=== PATIENT | female | born 1990 | race Caucasian/White ===

== ENCOUNTER 2017-01-10 14:21 | Emergency (ER) | payer OTHER ==
--- NOTE | ~2017-01-10 | US67 ---
[facility] A Service of [facility] & [facility] RADIOLOGY TEXT RESULTS PATIENT: JUANIS CALLAHAN LOCATION: SED : [birth year] UNIT #: [id number] AGE: [address]: Milind Morel MD SEX: F ORDER DR: [id number] [address] [id number] E MR#: [id number] Acc #: [id number] NAME: JUANIS CALLAHAN : 1990 SEX: F STUDY DATE/TIME: 01/10/2017 15:13 UNIT: SED ROOM: STUDY DESCRIPTION: US Gallbladder Attending Physician: Milind Morel M.D. Ordering Physician: Milind Morel M.D. Primary Care Physician: No Primary Care Physician MEDICAL IMAGING REPORT This report is preliminary unless electronic signature is present. EXAM Gallbladder ultrasound. CLINICAL HISTORY Abdomen pain, off-on one year, vomiting started day. Denies any abdominal surgery. TECHNIQUE Real-time ultrasonography of right upper quadrant performed. Cho-scale, color Doppler, Doppler pulse-wave interrogation utilized. FINDINGS Visualized portions of pancreas unremarkable. Much of the pancreas obscured by bowel gas artifact. Portal vein patent with normal direction of flow. Inferior vena cava patent. Liver appears normal in contour and echotexture. Some portions obscured by bowel gas artifact and rib artifact. Liver measures 15.03 cm in greatest length. The gallbladder contains a 14.7 mm gallstone. This is within the gallbladder neck. There is no pericholecystic fluid or gallbladder wall thickening. Gallbladder wall measures 2.3 mm in thickness. No intrahepatic biliary ductal dilatation. The extrahepatic duct is prominent at 5.7 mm, but no obstructing process is seen. Correlate with clinical presentation and laboratory data. The distal common bile duct is not visualized due to obscuration by bowel gas artifact. The right kidney measures 9.81 cm in greatest length. No hydronephrosis or nephrolithiasis. No cystic or solid mass lesion. No perinephric fluid collection. IMPRESSION 1. There is an approximately 14 mm calculus in the gallbladder neck. There is no sonographic indication of acute cholecystitis. 2. There is no intrahepatic biliary ductal dilatation but the extrahepatic common bile duct is mildly prominent at 5.7 mm in diameter. Correlate with patient's clinical presentation and STS. [facility] A Service of [facility] RADIOLOGY TEXT RESULTS PATIENT: JUANIS CALLAHAN LOCATION: SED : 90 UNIT #: [id number] AGE: [address]: Milind Morel MD SEX: F ORDER DR: laboratory data. No obstructing process is seen but the full course of the common bile duct is not visualized. If further assessment of biliary tree is clinically warranted, consider CT or MRCP. 3. Pancreas largely obscured by bowel gas artifact. If pancreas is of acute clinical concern it could be further assessed with CT. 4. Right kidney normal. 5. Liver unremarkable in appearance. Dictated by... Jaswinder Ackerman M.D. THIS IS AN ELECTRONICALLY VERIFIED REPORT Jaswinder Ackerman M.D. at 01/13/2017 5:50 PM GELY/brielle TD: 01/10/2017 23:26 JOB #: [id number] MEDICAL IMAGING REPORT Page 1 of 1
[~2017-01-10 14:21] MED LIST: KEFLEX500 MG PO; LORTAB 5/500 TA1 TA1 PO
[2017-01-10] MEDS ORDERED: NO MEDICATIONS (14:33)
[2017-01-10 15:10] LABS: BASOPHIL% 0.6 % (0-2.5); EOSINOPHIL# 0.3 X10e3 (0-0.7); HEMATOCRIT 41.8 % (35.0-45.0); HEMOGLOBIN 13.9 gm/dL (12.0-16.0); LYMPHOCYTE# 2.1 X10e3 (1.0-3.5); LYMPHOCYTE% 29.3 % (17.0-45.0); MEAN CELL VOLUME 88.9 FL (83-96); MEAN CORPUSCULAR HEMOGLOBIN 29.7 PG (28-34); MEAN CORPUSCULAR HGB CONC 33.4 g/dL (30-36); MEAN PLATELET VOLUME 9.7 FL (6.5-11.5); MONOCYTE# 0.6 X10e3 (0-1.0); MONOCYTE% 8.4 % (3.0-12.0); NEUTROPHIL# 4.1 X10e3 (1.5-7.1); NEUTROPHIL% 57.7 % (40-75); PLATELET COUNT 198 X10e3 (140-420); RED CELL DISTRIBUTION WIDTH 13.9 % (11.0-15.5); WHITE BLOOD COUNT 7.1 X10e3 (4.0-10.5)
[2017-01-10 15:14] LABS: DIFF IND NO
[2017-01-10 15:30] LABS: ALBUMIN SERUM 4.6 g/dL (3.5-5.0); BILIRUBIN, DIRECT 0.2 mg/dL (0.0-0.2); BILIRUBIN,INDIRECT 0.8 mg/dL (0.0-0.9); BUN/CREATININE RATIO 22.5; CALCIUM SERUM 9.6 mg/dL (8.4-10.2); CREATININE SERUM 0.8 mg/dL (0.6-1.4); GLOM FILT RATE Estimated 101.8 mL/min (>60); POTASSIUM 3.5 mmol/L (3.5-5.1); PROTEIN TOTAL SERUM 7.8 g/dL (6.0-8.3)
== END 2017-01-10 16:50 | disposition home or self-care (01) ==
LOC: SED 14:21
PROVIDERS: Emergency Medicine
DX: K80.70 Calculus of gallbladder and bile duct without cholecystitis without obstruction (principal); F11.10 Opioid abuse, uncomplicated; F17.200 Nicotine dependence, unspecified, uncomplicated
CPT/HCPCS: 36415; 76705; 80048; 80076; 82150; 83690; 84703; 85025; 99284

== ENCOUNTER 2017-03-12 16:29 | Emergency (ER) | payer OTHER ==
[~2017-03-12] VITALS: Ht 157.5 cm; Wt 68.0 kg
[~2017-03-12 16:29] MED LIST changes: +NO MEDICATIONS
== END 2017-03-12 17:30 | disposition home or self-care (01) ==
LOC: CED 16:29 → CFTX 16:29
DX: M25.512 Pain in left shoulder (principal); F17.210 Nicotine dependence, cigarettes, uncomplicated
CPT/HCPCS: 84703; 99283